=== PATIENT | male | born 1980 | race Caucasian/White ===

== ENCOUNTER 2018-09-26 13:25 | Emergency (ER) | payer OTHER ==
[~2018-09-26] VITALS: Ht 180.3 cm; Wt 86.4 kg
[2018-09-26 13:27] VITALS: BP 132/81
[2018-09-26] MEDS ORDERED: PRED20TA PO (14:02)
== END 2018-09-26 14:22 | disposition home or self-care (01) ==
LOC: M ED 13:25
DX: H92.03 Otalgia, bilateral (principal); H65.499 Other chronic nonsuppurative otitis media, unspecified ear; H69.93 Unspecified Eustachian tube disorder, bilateral; F17.210 Nicotine dependence, cigarettes, uncomplicated